=== PATIENT | female | born 1955 | race Caucasian/White ===

== ENCOUNTER → 2019-05-29 12:09 | Outpatient (BNVA) | payer BC, SELFPAY | PROVIDERS: Family Provider Family Medicine; PCP Nurse Practitioner; Referring Provider Nurse Practitioner; Visit Provider Specialist | DX: M25.521 Pain in right elbow (principal) | CPT/HCPCS: 73080 ==

== ENCOUNTER 2019-08-06 14:39 | Emergency (ER) | payer BC, SELFPAY ==
[2019-08-06 14:45] VITALS: BP 191/103; PULSE 76; RESP 18; TEMP 36.8; O2SAT 95; BMI 35.2
--- NOTE | 2019-08-06 15:10 | ECG_ITS ---
Measurements Intervals [place] Rate: 69 P: 32 MN: 168 QRS: -10 QRSD: 78 T: 63 QT: 398 QTc: [address] & T-WAVE ABNORMALITY No previous ECG available for comparison Electronically Signed On 08-06-2019 19:45:11 CDT by Cheri Morel M.D. [email or web address]
--- NOTE | 2019-08-06 15:10 | CT_ITS ---
WS: [id number] CT HEAD NONCONTRAST HISTORY: facial numbness TECHNIQUE: Contiguous axial imaging performed through the brain in 2.5 mm imaging. Bone and soft tiss ue windows. Sagittal and coronal reformats reviewed. All CT scans at [facility] use at ast one of these dose optimization techniques: automated exposure control; mA and/or kV adjustment pe r patient size (includes targeted exams where dose is matched to clinical indication); or iterative r econstruction. DLP: 720.08 mGy.cm COMPARISON: None available. No acute intracranial hemorrhage, midline shift or mass effect. No atrophy or prior infarcts or herniation. Tiny lacunar infarct LEFT basal ganglia. Ventricles: Normal size with no hydrocephalus. No inferior displacement of cerebellar tonsils. Paranasal sinuses: As visualized are clear. Mastoid air cells: Well pneumatized. Calvarium and scalp: Skull is intact with no soft tissue edema or swelling. Atherosclerotic plaque intracranial carotid arteries. CT/CT head wo con* [id number] IMPRESSION: Prior lacunar infarct LEFT basal ganglia. No acute intracranial findings.
[2019-08-06 15:16] LABS: Basophils % 0.6 %; Eosinophils # 0.2 10^3/uL (0.0-0.8); Eosinophils % 3.1 %; Hematocrit 48.2 % (37.0-47.0); Hemoglobin 16.3 g/dL (11.5-15.3); Lymphocytes # 1.6 10^3/uL (0.8-4.8); Lymphocytes % 31.4 %; Mean Corpuscular HGB Conc 33.8 g/dL (30.0-36.0); Mean Corpuscular Hemoglobin 32.2 pg (28.0-34.0); Mean Corpuscular Volume 95.3 fL (81-99); Mean Platelet Volume 11.1 fL (7.4-10.4); Monocytes # 0.4 10^3/uL (0.2-0.9); Monocytes % 8.1 %; Neutrophils # 2.9 10^3/uL (1.8-7.7); Neutrophils % 56.8 %; Nucleated Red Blood Cells % 0 %; Platelet Count 194 10^3/cmm (130-400); Red Blood Count 5.06 10^6/uL (4.1-5.3); Red Cell Distribution Width 12.2 % (12.1-15.1); White Blood Count 5.2 10^3/uL (4.0-10.0)
[2019-08-06] MEDS: LORazepam 1 mg Tablet PO (15:20)
[2019-08-06 15:30] VITALS: BP 157/93; PULSE 65; RESP 18; O2SAT 94
--- NOTE | 2019-08-06 15:33 | ED_ITS ---
Documented by User: Laly Landeros 08/06/19 17:07 HPI - Chest Pain General: Chief Complaint: Chest Pain Stated Complaint: CP Time Seen by Provider: 08/06/19 14:58 Source: patient Mode of arrival: ambulatory History of Present Illness: HPI narrative: Pt presents to ER with an array of symptoms and pt is poor historian. MD complaint: chest discomfort Review of Systems General: Reports: 10 or more systems reviewed and unremarkable except in HPI and below PFSH ED PFSH: Medical History Brain injury Hypertension Labyrinthitis, bilateral Surgical History Hx of cholecystectomy Hx of dilation and curettage Family History Other Cancer Lung disease Social History Smoking and tobacco status: never smoked Alcohol intake: never Adopted: No Caregiver/support person: No Lives independently: Yes Household members: family Housing: House Marital status: Number of children: 0 Highest education level completed: Bachelor's Degree service: No Current occupational status: employed Agree to transfusion: Yes (04/30/2019) Physical Exam Const: COMMON NORMALS: no apparent distress, oriented x3, no limitations and alert GENERAL APPEARANCE: cooperative and comfortable ORIENTATION/CO NSCIOUSNESS: Yes awake, Yes oriented to person, Yes oriented to place and Yes oriented to time HENMT: COMMON NORMALS: normocephalic, head/scalp atraumatic, external ears normal, EAC's normal, TM's normal bilaterally and external nose normal HEAD & SCALP: normal to inspection, normocephalic and atraumatic FACE & SINUS: normal facial exam, sinuses nontender and face symmetric NOSE: external nose normal, nares normal and no nasal discharge EXTERNAL EAR: Yes external ears normal EXTERNAL AUDITORY CANAL: EAC's normal TYMPANIC MEMBRANE: TM's normal bilaterally MOUTH: oral and palatal mucosa normal, lip normal and tongue normal THROAT: posterior oropharynx normal, tonsils normal and uvula midline Eye: COMMON NORMALS: PERRL, EOMs intact bilaterally and conjunctivae normal GENERAL EYE: normal appearance of both eyes and normal light reflex EYELID: eyelids normal CONJUNCTIVA: Yes conjunctivae normal PUPIL: Yes PERRL EOM: Yes EOM abnormal DIRECT OPHTHALMOSCOPY: Yes normal light reflex Neck/C-Spine: COMMON NORMALS: full ROM, no lymphadenopathy, supple, no meningeal signs, no JVD and thyroid normal GENERAL: Yes normal visual inspection THYROID: thyroid normal CERVICAL SPINE: Yes cervical ROM normal and Yes normal cervical lordosis Lymph: LYMPHATIC: no lymphadenopathy noted Chest: COMMONS NORMALS: inspection of chest normal and palpation of chest normal Resp: COMMON NORMALS: normal respiratory effort, no retractions and clear to auscultation bilaterally AUSCULTATION: clear to auscultation bilaterally Cardio: COMMON NORMALS: no JVD, regular rate, regular rhythm, S1 normal heart sound, S2 normal heart sound, no gallops, no clicks, no murmurs, no rub and peripheral pulses 2+ throughout RATE: regular rate RHYTHM: regular rhythm HEART SOUNDS: S1 normal and S2 normal PERIPHERAL PULSES: pulses 2+ throughout GI: COMMON NORMALS: normal to inspection, nondistended, normoactive bowel sounds, soft to palpation, non-tender and no masses PALPATION: Yes soft : COMMON NORMALS: Yes no CVA tenderness and Yes external appearance normal BLADDER/KIDNEY EXAM: Yes no CVA tenderness Back/Pelvis: COMMON NORMALS: no CVA tenderness, thoracic and lumbar spine normal to inspection, no thoracic nor lumbar tenderness and thoraco-lumbar ROM normal Extremity: COMMON NORMALS: normal to inspection, full ROM, normal capillary refill, no joint enlargement, no clubbing, cyanosis or edema, no calf tenderness and no pedal edema GENERAL: Yes normal exam except as noted Neuro: COMMON NORMALS: oriented x3, moves all extremities, no focal motor deficits, no sensory deficits noted and gait normal SENSORIUM/ORIENTATION: Yes alert, Yes oriented to person, Yes oriented to place and Yes oriented to time MENINGEAL SIGNS: Yes no meningeal signs Psych: COMMON NORMALS: mental status grossly normal, thought process normal, cooperative, affect normal, speech normal and activity/motor behavior normal SPEECH: Yes normal speech THOUGHT PROCESS: normal thought process Skin: COMMON NORMALS: no rashes or lesions noted, no wounds and skin turgor normal GENERAL SKIN EXAM: no rashes or lesions noted and turgor normal Course ED course: Pt has multiple complaints including blurry vision, difficulty with deep breaths, and states her face on the right side feels numb. She does have notably elevated BP but is in no acute distress during my assessment. Will proceed with orders. Reevaluation(s): Reevaluation #1: CT head shows no acute findings. Discussed with Dr. Reed. Will do serial troponin and CXR. Report given to Nain Sherman NP. Time: 17:07 Vital Signs: Vital signs: Vital Signs Temperature 98.2 F 08/06/19 14:45 Pulse Rate 72 08/06/19 16:55 Respiratory Rate 18 08/06/19 16:55 Blood Pressure 150/83 08/06/19 16:55 Pulse Oximetry 98 08/06/19 16:55 MDM - Chest Pain Lab Data: Labs: Lab Results 08/06/19 08/06/19 08/06/19 Range/Units 15:00 15:00 15:00 WBC 5.2 (4.0-10.0) 10^3/ uL RBC 5.06 (4.1-5.3) 10^6/u L Hgb 16.3 H (11.5-15.3) g/dL Hct 48.2 H (37.0-47.0) % MCV 95.3 (81-99) fL MCH 32.2 (28.0-34.0) pg MCHC 33.8 (30.0-36.0) g/dL RDW 12.2 (12.1-15.1) % Plt Count 194 (130-400) 10^3/c mm MPV 11.1 H (7.4-10.4) fL Neut % (Auto) 56.8 % Lymph % (Auto) 31.4 % [place] % (Auto) 8.1 % Eos % (Auto) 3.1 % Baso % (Auto) 0.6 % Neut # (Auto) 2.9 (1.8-7.7) 10^3/u L Lymph # (Auto) 1.6 (0.8-4.8) 10^3/u L [place] # (Auto) 0.4 (0.2-0.9) 10^3/u L Eos # (Auto) 0.2 (0.0-0.8) 10^3/u L Baso # (Auto) 0.0 (0.0-0.1) 10^3/u L Nucleated RBC % (a uto) 0 % Nucleated RBCs # 0.0 /100WBC Sodium 139 (136-145) mmol/L Potassium 4.2 (3.5-5.1) mmol/L Chloride 96 L (98-107) mmol/L Carbon Dioxide 29 (22-29) mmol/L Anion Gap 18.2 (5-19) BUN 10 (8-23) mg/dL Creatinine 0.6 (0.5-0.9) mg/dL GFR Calculation 101.0 (90-130) mL/min Glucose 154 H (65-115) mg/dL Calculated Osmolal ity 287 (285-295) mOsm/k g Calcium 10.7 H (8.5-10.5) mg/dL Total Bilirubin 0.7 (0.15-1.2) mg/dL AST 60 H (0-32) U/L ALT 61 H (0-33) U/L Alkaline Phosphata se 65 (35-105) IU/L Troponin T Gen 5 n g/L 6 (0-10) ng/mL Total Protein 8.6 (6.6-8.7) g/dL Albumin 4.6 (3.5-5.2) g/dL Globulin 4.0 (1.3-4.6) g/dL 08/06/19 Range/Units 17:07 WBC (4.0-10.0) 10^3/ uL RBC (4.1-5.3) 10^6/u L Hgb (11.5-15.3) g/dL Hct (37.0-47.0) % MCV (81-99) fL MCH (28.0-34.0) pg MCHC (30.0-36.0) g/dL RDW (12.1-15.1) % Plt Count (130-400) 10^3/c mm MPV (7.4-10.4) fL Neut % (Auto) % Lymph % (Auto) % [place] % (Auto) % Eos % (Auto) % Baso % (Auto) % Neut # (Auto) (1.8-7.7) 10^3/u L Lymph # (Auto) (0.8-4.8) 10^3/u L [place] # (Auto) (0.2-0.9) 10^3/u L Eos # (Auto) (0.0-0.8) 10^3/u L Baso # (Auto) (0.0-0.1) 10^3/u L Nucleated RBC % (a uto) % Nucleated RBCs # /100WBC Sodium (136-145) mmol/L Potassium (3.5-5.1) mmol/L Chloride (98-107) mmol/L Carbon Dioxide (22-29) mmol/L Anion Gap (5-19) BUN (8-23) mg/dL Creatinine (0.5-0.9) mg/dL GFR Calculation (90-130) mL/min Glucose (65-115) mg/dL Calculated Osmolal ity (285-295) mOsm/k g Calcium (8.5-10.5) mg/dL Total Bilirubin (0.15-1.2) mg/dL AST (0-32) U/L ALT (0-33) U/L Alkaline Phosphata se (35-105) IU/L Troponin T Gen 5 n g/L 6 (0-10) ng/mL Total Protein (6.6-8.7) g/dL Albumin (3.5-5.2) g/dL Globulin (1.3-4.6) g/dL Imaging Data^: CT Head: Radiologist's impression: [address] [place] [address] CT Scan Report Signed Patient: Fani Montes Unit #: [id number] : 1955 7 Age/Sex: 63 / F ADM Date: 08/06/19 Loc: ER Room/Bed: Attending Dr: Ordering Provider/Ordering MD: Laly Landeros NP Date of Service: 08/06/19 Procedure(s): CT head wo con* [id number] Accession Number(s): [id number] Report Number: [id number] WS: [id number] CT HEAD NONCONTRAST HISTORY: facial numbness TECHNIQUE: Contiguous axial imaging performed through the brain in 2.5 mm imaging. Bone and soft tissue windows. Sagittal and coronal reformats reviewed. All CT scans at [facility] use at least one of these dose optimization techniques: automated exposure control; mA and/or kV adjustment per patient size (includes targeted exams where dose is matched to clinical indication); or iterative reconstruction. DLP: 720.08 mGy.cm COMPARISON: None available. No acute intracranial hemorrhage, midline shift or mass effect. No atrophy or prior infarcts or herniation. Tiny lacunar infarct LEFT basal ganglia. Ventricles: Normal size with no hydrocephalus. No inferior displacement of cerebellar tonsils. Paranasal sinuses: As visualized are clear. Mastoid air cells: Well pneumatized. Calvarium and scalp: Skull is intact with no soft tissue edema or swelling. Atherosclerotic plaque intracranial carotid arteries. CT/CT head wo con* [id number] IMPRESSION: Prior lacunar infarct LEFT basal ganglia. No acute intracranial findings. Dictated By: Brittny Eldridge DO Signed By: Brittny Eldridge DO Signed Date/Time: 08/06/191622 DD/ 19 Discharge Plan Discharge Patient Disposition: Home, Self-Care Clinical Impression: Alberts's palsy, Chest pain due to GERD Condition: Stable Prescriptions: New prednisone 20 mg tablet 20 mg PO TID 7 Days Qty: 21 RF: 0 valacyclovir 1 gram tablet 1,000 mg PO TID 7 Days Qty: 21 RF: 0 No Action One-A-Day Women's 50 Plus 400-20 mcg tablet 1 tab PO DAILY RF: 0 coenzyme Q10 [Co Q-10] 100 mg capsule 300 mg PO DAILY RF: 0 mecobalamin (vitamin B12) 1,000 mcg tablet,disintegrating 1,000 mcg SUBLINGUAL DAILY RF: 0 Glucocil 2 tab PO PRN RF: 0 atenolol 50 mg tablet 50 mg PO BID Qty: 180 RF: 3 hydrochlorothiazide 25 mg tablet 25 mg PO DAILY Qty: 90 RF: 3 Vitamin C 1,000 mg Tablet 1,000 mg PO DAILY RF: 0 Aspir-81 81 mg Tablet,Delayed Release (Dr/Ec) 81 mg PO DAILY RF: 0 Cinnamon 500 mg Capsule 500 mg PO PRN RF: 0 turmeric 400 mg Capsule 400 mg PO DAILY RF: 0 Discharge Orders: Discharge Order (Routine); Ordered 08/06/19 Ordered By: Lc Sherman Referrals: Elysia Mariano FNP [Primary Care Provider] - Discharge Diet: Advance as tolerated Discharge Activity: Increase activity as tolerated Patient Instructions: Alberts Palsy (ED) Activity Restrictions/Additional Instructions: Drink plenty of water with medication. Healthy diet and activity. Avoid onions or foods that aggravate heartburn or reflux. Avoid taking prednisone 2 hours before bedtime. Follow-up with primary care in 1 week. Return to the ER for hi gh fever, worsening shortness of breath or other symptoms. Coding Level of Care Code ED Geology Professor for Chg Fwd Exam Comprehensive Documented by User: MARGIE Zuniga 08/06/19 18:05 HPI - Chest Pain General: Chief Complaint: Chest Pain Stated Complaint: CP Time Seen by Provider: 08/06/19 14:58 PFSH ED PFSH: Medical History Brain injury Hypertension Labyrinthitis, bilateral Surgical History Hx of cholecystectomy Hx of dilation and curettage Family History Other Cancer Lung disease Social History Smoking and tobacco status: never smoked Alcohol intake: never Adopted: No Caregiver/support person: No Lives independently: Yes Household members: family Housing: House Marital status: Number of children: 0 Highest education level completed: Bachelor's Degree service: No Current occupational status: employed Agree to transfusion: Yes (04/30/2019) Course Reevaluation(s): Reevaluation #1: 9022, received patient from BRANDY Rojas, awaiting CXR and troponin. Patient was reviewed with and recommened for further evaluation of 2 outstanding tests. Probable discharge after tests if negative results with follow-up with primary care. wjw Vital Signs: Vital signs: Vital Signs Temperature 98.2 F 08/06/19 14:45 Pulse Rate 72 08/06/19 16:55 Respiratory Rate 18 08/06/19 16:55 Blood Pressure 150/83 08/06/19 16:55 Pulse Oximetry 98 08/06/19 16:55 MDM - Chest Pain MDM Narrative: Medical decision making narrative: Patient comes in today for with general symptoms. On exam it was noted some facial drooping on the left side. Abdomen was soft with some epigastric tenderness. Bowel sounds are normal. Vital signs were normal except for some mild elevation in blood pressure. Laboratory values noted no elevation in troponin, no other significant abnormalities was noted. CT scan of the head noted a lacunar infarct of the basal ganglia that was old. Chest x-ray was normal. Reviewed exam with patient recommended treatment for Alberts's palsy. No sign of focal neural deficits or other central neuropathy. Differential diagnosis included but not limited to ACS, CVA, Alberts's palsy, reflux, pancreatitis, gastritis. Reviewed exam with patient recommended follow-up with primary care in 1 week. Recommend referral to neurology for further evaluation of facial drooping on the left side. Also recommended follow-up with surgery for endoscopy relating history of esophagitis and atypical chest pain. Patient reported understanding and agreed with plan. Lab Data: Labs: Lab Results 08/06/19 08/06/19 08/06/19 Range/Units 15:00 15:00 15:00 WBC 5.2 (4.0-10.0) 10^3/ uL RBC 5.06 (4.1-5.3) 10^6/u L Hgb 16.3 H (11.5-15.3) g/dL Hct 48.2 H (37.0-47.0) % MCV 95.3 (81-99) fL MCH 32.2 (28.0-34.0) pg MCHC 33.8 (30.0-36.0) g/dL RDW 12.2 (12.1-15.1) % Plt Count 194 (130-400) 10^3/c mm MPV 11.1 H (7.4-10.4) fL Neut % (Auto) 56.8 % Lymph % (Auto) 31.4 % [place] % (Auto) 8.1 % Eos % (Auto) 3.1 % Baso % (Auto) 0.6 % Neut # (Auto) 2.9 (1.8-7.7) 10^3/u L Lymph # (Auto) 1.6 (0.8-4.8) 10^3/u L [place] # (Auto) 0.4 (0.2-0.9) 10^3/u L Eos # (Auto) 0.2 (0.0-0.8) 10^3/u L Baso # (Auto) 0.0 (0.0-0.1) 10^3/u L Nucleated RBC % (a uto) 0 % Nucleated RBCs # 0.0 /100WBC Sodium 139 (136-145) mmol/L Potassium 4.2 (3.5-5.1) mmol/L Chloride 96 L (98-107) mmol/L Carbon Dioxide 29 (22-29) mmol/L Anion Gap 18.2 (5-19) BUN 10 (8-23) mg/dL Creatinine 0.6 (0.5-0.9) mg/dL GFR Calculation 101.0 (90-130) mL/min Glucose 154 H (65-115) mg/dL Calculated Osmolal ity 287 (285-295) mOsm/k g Calcium 10.7 H (8.5-10.5) mg/dL Total Bilirubin 0.7 (0.15-1.2) mg/dL AST 60 H (0-32) U/L ALT 61 H (0-33) U/L Alkaline Phosphata se 65 (35-105) IU/L Troponin T Gen 5 n g/L 6 (0-10) ng/mL Total Protein 8.6 (6.6-8.7) g/dL Albumin 4.6 (3.5-5.2) g/dL Globulin 4.0 (1.3-4.6) g/dL 08/06/19 Range/Units 17:07 WBC (4.0-10.0) 10^3/ uL RBC (4.1-5.3) 10^6/u L Hgb (11.5-15.3) g/dL Hct (37.0-47.0) % MCV (81-99) fL MCH (28.0-34.0) pg MCHC (30.0-36.0) g/dL RDW (12.1-15.1) % Plt Count (130-400) 10^3/c mm MPV (7.4-10.4) fL Neut % (Auto) % Lymph % (Auto) % [place] % (Auto) % Eos % (Auto) % Baso % (Auto) % Neut # (Auto) (1.8-7.7) 10^3/u L Lymph # (Auto) (0.8-4.8) 10^3/u L [place] # (Auto) (0.2-0.9) 10^3/u L Eos # (Auto) (0.0-0.8) 10^3/u L Baso # (Auto) (0.0-0.1) 10^3/u L Nucleated RBC % (a uto) % Nucleated RBCs # /100WBC Sodium (136-145) mmol/L Potassium (3.5-5.1) mmol/L Chloride (98-107) mmol/L Carbon Dioxide (22-29) mmol/L Anion Gap (5-19) BUN (8-23) mg/dL Creatinine (0.5-0.9) mg/dL GFR Calculation (90-130) mL/min Glucose (65-115) mg/dL Calculated Osmolal ity (285-295) mOsm/k g Calcium (8.5-10.5) mg/dL Total Bilirubin (0.15-1.2) mg/dL AST (0-32) U/L ALT (0-33) U/L Alkaline Phosphata se (35-105) IU/L Troponin T Gen 5 n g/L 6 (0-10) ng/mL Total Protein (6.6-8.7) g/dL Albumin (3.5-5.2) g/dL Globulin (1.3-4.6) g/dL Discharge Plan Discharge Patient Disposition: Home, Self-Care Clinical Impression: Alberts's palsy, Chest pain due to GERD Condition: Stable Prescriptions: New prednisone 20 mg tablet 20 mg PO TID 7 Days Qty: 21 RF: 0 valacyclovir 1 gram tablet 1,000 mg PO TID 7 Days Qty: 21 RF: 0 No Action One-A-Day Women's 50 Plus 400-20 mcg tablet 1 tab PO DAILY RF: 0 coenzyme Q10 [Co Q-10] 100 mg capsule 300 mg PO DAILY RF: 0 mecobalamin (vitamin B12) 1,000 mcg tablet,disintegrating 1,000 mcg SUBLINGUAL DAILY RF: 0 Glucocil 2 tab PO PRN RF: 0 atenolol 50 mg tablet 50 mg PO BID Qty: 180 RF: 3 hydrochlorothiazide 25 mg tablet 25 mg PO DAILY Qty: 90 RF: 3 Vitamin C 1,000 mg Tablet 1,000 mg PO DAILY RF: 0 Aspir-81 81 mg Tablet,Delayed Release (Dr/Ec) 81 mg PO DAILY RF: 0 Cinnamon 500 mg Capsule 500 mg PO PRN RF: 0 turmeric 400 mg Capsule 400 mg PO DAILY RF: 0 Discharge Orders: Discharge Order (Routine); Ordered 08/06/19 Ordered By: Lc Sherman Referrals: Elysia Mariano FNP [Primary Care Provider] - Discharge Diet: Advance as tolerated Discharge Activity: Increase activity as tolerated Patient Instructions: Alberts Palsy (ED) Activity Restrictions/Additional Instructions: Drink plenty of water with medication. Healthy diet and activity. Avoid onions or foods that aggravate heartburn or reflux. Avoid taking prednisone 2 hours before bedtime. Follow-up with primary care in 1 week. Return to the ER for high fever, worsening shortness of breath or other symptoms. Coding Level of Care Code ED Geology Professor for Andres Fwd Exam Comprehensive
[2019-08-06 16:11] LABS: Alanine Aminotransferase 61 U/L (0-33); Albumin Level 4.6 g/dL (3.5-5.2); Alkaline Phosphatase 65 IU/L (35-105); Anion Gap 18.2 (5-19); Blood Urea Nitrogen 10 mg/dL (8-23); Calcium 10.7 mg/dL (8.5-10.5); Carbon Dioxide 29 mmol/L (22-29); Chloride 96 mmol/L (98-107); Glucose 154 mg/dL (65-115); Osmolality Calculated 287 mOsm/kg (285-295); Potassium 4.2 mmol/L (3.5-5.1); Sodium 139 mmol/L (136-145); Total Bilirubin 0.7 mg/dL (0.15-1.2); Total Protein 8.6 g/dL (6.6-8.7)
[2019-08-06 16:12] LABS: Aspartate Amino Transferase 60 U/L (0-32)
[2019-08-06 16:31] VITALS: BP 209/132; PULSE 65; RESP 18; O2SAT 96
[2019-08-06 16:55] VITALS: BP 150/83; PULSE 72; RESP 18; O2SAT 98
--- NOTE | 2019-08-06 17:06 | XR_ITS ---
WS: [id number] PORTABLE CHEST HISTORY: chest discomfort on inspiration COMPARISON: None available. Lungs are clear and well expanded. No pleural effusion or pneumothorax. Cardiac size: Normal. Mediastinum/Aorta: Normal mediastinum. No osseous abnormality seen. XR/XR chest 1V portable [id number] IMPRESSION: Unremarkable portable chest.
[2019-08-06 17:32] LABS: Troponin T (5th) Once 6 ng/mL (0-10)
[2019-08-06 17:34] LABS: Troponin T (5th) Once 6 ng/mL (0-10)
[2019-08-06] MEDS: predniSONE 20 mg Tablet PO (19:06)
[2019-08-06] MEDS: valACYclovir 1,000 mg Tablet 1000 MG PO (19:06)
[2019-08-06 19:11] VITALS: BP 130/85; PULSE 66; RESP 18; O2SAT 95
--- NOTE | 2019-08-07 10:47 | DCPLANNER ---
youth manager had message to schedule a follow up appointment for patient with neurology. youth manager called the office of Dr. Leonardo, spoke with Veronica, gave clinic patients information. A follow up appointment was scheduled for Wednesday, August 14, 2019 at 8:00 with Carter Triana. youth manager called and spoke with patients , gave him the appointment information.
--- NOTE | 2019-08-21 08:08 | DCPLANNER ---
Patient did attend appointment scheduled for 08.14.[address] Leonardo.
== END 2019-08-06 19:12 | disposition home or self-care (01) ==
PROVIDERS: Nurse Practitioner Family; Emergency Provider Nurse Practitioner Family; PCP Nurse Practitioner
DX: G51.0 Bell's palsy (principal); K21.9 Gastro-esophageal reflux disease without esophagitis; Z79.82 Long term (current) use of aspirin; I10 Essential (primary) hypertension
CPT/HCPCS: 12345; 70450; 71045; 80053; 84484; 85025; 93005; 99283; J7512

== ENCOUNTER → 2019-08-14 08:01 | Outpatient (BNVA) | payer BC, SELFPAY | PROVIDERS: PCP Nurse Practitioner; Visit Provider Nurse Practitioner | DX: G51.0 Bell's palsy (principal) | CPT/HCPCS: 99204; 99999 ==

== ENCOUNTER 2019-09-13 13:39 | Outpatient (CLI) | payer BC, SELFPAY ==
--- NOTE | 2019-09-13 14:15 | USCV_ITS ---
Fani Montes Age: 64 Gender: F : 1955 Exam Date: 09/13/2019 13:54 Ordering Phys: Carter Triana MSN AGACNP-BC Technologist: Hasmukh Real [place] [facility] [place]: DZZY Risk Factors: None Previous Vascular Surgery: None Right Brachial BP: / Left Brachial BP: / Right Left Velocity (cm/s) Spectral Plaque Velocity (cm/s) Spectral Plaque Syst/Diast Broadening Syst/Diast Broadening 61.70/ 13.20 Prox CCA 84.00 / 19.10 58.70/ 13.20 Mid CCA 52.80 / 8.80 76.90/ 16.20 Hetro Distal CCA 56.40 / 14.70 Hetro 40.60/ 11.20 Hetro Prox ICA 46.30 / 11.30 Hetro 49.00/ 11.40 Mid ICA 61.20 / 18.40 39.90/ 14.20 Distal ICA 58.20 / 21.40 95.20 ECA 52.30 0.64 ICA/CCA 0.73 Antegrade Vertebral Antegrade 26.50/ 7.40 cm/s 36.80/ 7.70 cm/s Tri Subclavian Tri 60.40 64.10 FINDINGS Mild to moderate plaque to the right bifurcation and internal carotid artery Minimal plaques of the left bifurcation internal carotid artery Antegrade flow in the vertebral arteries bilaterally Normal Doppler flow velocities in the external carotid and subclavian arteries bilaterally CONCLUSIONS Mild to moderate plaque at the right bifurcation and internal carotid artery Minimal plaques at the left bifurcation internal carotid artery. No significant stenosis, based on the above findings. Dr Sudhir Randall MD FAC (Electronically Signed) Final Date: 16 September 2019 07:58 S
== END 2019-09-13 13:40 | disposition home or self-care (01) ==
LOC: RAD 13:43
PROVIDERS: PCP Nurse Practitioner; Visit Provider Nurse Practitioner
DX: R42 Dizziness and giddiness (principal); I65.21 Occlusion and stenosis of right carotid artery
CPT/HCPCS: 93880

== ENCOUNTER → 2020-08-25 12:34 | Outpatient (BNVA) | payer MEDICARE, SELFPAY | PROVIDERS: PCP Nurse Practitioner Family; Visit Provider Nurse Practitioner Family | DX: I10 Essential (primary) hypertension (principal); G47.00 Insomnia, unspecified; M54.2 Cervicalgia; M79.601 Pain in right arm; M25.511 Pain in right shoulder; R07.9 Chest pain, unspecified; G89.29 Other chronic pain | CPT/HCPCS: 80053; 80061; 85025 ==

== ENCOUNTER 2020-08-28 13:12 | Outpatient (CLI) | payer MEDICARE, SELFPAY ==
--- NOTE | 2020-08-28 13:30 | XR_ITS ---
WS: [id number] RIGHT SHOULDER: 3 VIEW(S) TECHNIQUE: Internal and external rotation with Y view. HISTORY: M25.511 - Pain in right shoulder COMPARISON: None available. No fracture or dislocation or soft tissue abnormality. Mild AC joint arthritis. XR/XR shoulder RT min 2V* [id number] IMPRESSION: Mild RIGHT AC joint arthritis.
--- NOTE | 2020-08-28 13:30 | XR_ITS ---
WS: [id number] CERVICAL SPINE 3 VIEWS HISTORY: M54.2 - Cervicalgia COMPARISON: None available. Straight neck and reversal normal cervical lordosis centered at C6. Moderate disc space narrowing and desiccation with osteophytes at C5-6 and C6-7. No fracture. There i s mild RIGHT curvature thoracic spine. Soft tissues are normal. Lateral masses are aligned odontoid is intact. XR/XR cervical spine 3V* [id number] IMPRESSION: Moderate spondylitic changes in the cervical spine, most significant at C5-6 an d C6-7. No fracture.
--- NOTE | 2020-08-28 13:30 | XR_ITS ---
WS: [id number] RIGHT HUMERUS: 2 VIEW(S) TECHNIQUE: AP and lateral. HISTORY: M79.601 - Pain in right arm COMPARISON: None available. Mild AC joint arthritis. No joint or soft tissue abnormality. No foreign bodies and visualized upper thorax is unremarkable. XR/[place] [id number] IMPRESSION: Mild RIGHT AC joint arthritis.
== END 2020-08-28 13:13 | disposition home or self-care (01) ==
PROVIDERS: PCP Nurse Practitioner Family; Visit Provider Nurse Practitioner Family
DX: M54.2 Cervicalgia (principal); M79.601 Pain in right arm; M25.511 Pain in right shoulder; M13.811 Other specified arthritis, right shoulder
CPT/HCPCS: 72040; 73030; 73060

== ENCOUNTER 2020-10-05 12:32 | Outpatient (RCR) | payer MEDICARE, SELFPAY | END 2020-10-24 23:59 | disposition home or self-care (01) | LOC: SPT 12:32 | PROVIDERS: PCP Nurse Practitioner Family; Referring Provider Nurse Practitioner Family; Visit Provider Nurse Practitioner Family | DX: M79.601 Pain in right arm (principal); M54.2 Cervicalgia; M25.511 Pain in right shoulder; G89.29 Other chronic pain; M25.521 Pain in right elbow | CPT/HCPCS: 97110; 97140; 97162; 97530 ==

== ENCOUNTER → 2021-06-07 11:37 | Outpatient (BNVA) | payer MEDICARE, SELFPAY | PROVIDERS: PCP Nurse Practitioner Family; Visit Provider Nurse Practitioner Family | DX: I10 Essential (primary) hypertension (principal); E55.9 Vitamin D deficiency, unspecified | CPT/HCPCS: 80053; 80061; 82306; 82607; 84443; 85025 ==

== ENCOUNTER 2021-07-13 16:46 | Outpatient (CLI) | payer MEDICARE, SELFPAY ==
[2021-07-13 17:59] LABS: Thyroid Stimulating Hormone 7.24 uIU/mL (0.27-4.20)
[2021-07-13 20:06] LABS: Free T4 Free Thyroxine 1.14 ng/dL (0.82-1.77)
[2021-07-13 20:11] LABS: Estmated Average Glucose 128; Hemoglobin A1C 6.1 % (4.0-6.0)
== END 2021-07-13 16:47 | disposition home or self-care (01) ==
LOC: LAB 16:52
PROVIDERS: PCP Nurse Practitioner Family; Visit Provider Nurse Practitioner Family
DX: R73.9 Hyperglycemia, unspecified (principal); R79.89 Other specified abnormal findings of blood chemistry
CPT/HCPCS: 83036; 84439; 84443

== ENCOUNTER → 2021-09-21 12:07 | Outpatient (BNVA) | payer OTHER, SELFPAY | PROVIDERS: PCP Nurse Practitioner Family; Visit Provider Nurse Practitioner Family | DX: I10 Essential (primary) hypertension (principal); R00.2 Palpitations; R53.83 Other fatigue; E55.9 Vitamin D deficiency, unspecified; R73.9 Hyperglycemia, unspecified; E03.9 Hypothyroidism, unspecified; L23.7 Allergic contact dermatitis due to plants, except food; I83.90 Asymptomatic varicose veins of unspecified lower extremity | CPT/HCPCS: 80053; 80061; 82306; 84439; 84443; 84481; 85025 ==

== ENCOUNTER → 2022-10-20 13:32 | Outpatient (BNVA) | payer MEDICARE, SELFPAY | PROVIDERS: PCP Nurse Practitioner Family; Visit Provider Family Medicine Adult Medicine | DX: I10 Essential (primary) hypertension (principal); R73.03 Prediabetes; E03.9 Hypothyroidism, unspecified | CPT/HCPCS: 80053; 83036; 84443 ==

== ENCOUNTER → 2023-05-30 12:53 | Outpatient (BNVA) | payer MEDICARE, SELFPAY | PROVIDERS: PCP Nurse Practitioner Family; Visit Provider Nurse Practitioner Family | DX: L57.8 Other skin changes due to chronic exposure to nonionizing radiation (principal); L82.1 Other seborrheic keratosis; D22.5 Melanocytic nevi of trunk; L81.4 Other melanin hyperpigmentation; Z85.828 Personal history of other malignant neoplasm of skin | CPT/HCPCS: 99213 ==

== ENCOUNTER → 2024-04-09 11:56 | Outpatient (BNVA) | payer MEDICARE, SELFPAY | PROVIDERS: PCP Family Medicine; Visit Provider Family Medicine | DX: I10 Essential (primary) hypertension (principal); R73.03 Prediabetes; R79.89 Other specified abnormal findings of blood chemistry; N95.0 Postmenopausal bleeding | CPT/HCPCS: 80053; 83036; 84439; 84443; 84481; 85025 ==

== ENCOUNTER 2024-04-25 13:52 | Outpatient (CLI) | payer MEDICARE, SELFPAY ==
--- NOTE | 2024-04-25 13:45 | US_ITS ---
WS: [id number] US transvaginal [id number] HISTORY: postmenopausal vaginal bleeding COMPARISON: None available. Uterus: 6.9 cm x 4.1 cm x 3.4 cm. Retroverted uterus. Normal size uterus. There is a hypoechoic mass inseparable from the LEFT uterus m easuring 2.0 x 2.8 x 2.2 cm which may be a fibroid. Mild peripheral increased vascularity. Endometrium: 1.9 cm. Abnormal endometrium. Endometrium is enlarged for a postmenopausal patient. Ther e are a few cystic areas scattered throughout the endometrium and the endometrium is hyperechoic. Dif fuse enlargement of the endometrium with mild increased vascularity. Neither ovary is identified. No free fluid in the cul-de-sac. US/US transvaginal [id number] IMPRESSION: 1. Abnormal endometrium. Enlarged hyperechoic endometrium measuring up to 1.9 cm with scattered cystic areas. Differential includes hyperplasia and neoplasm. Recommend BASKETBALL SCOUT evaluation and endometrial biopsy. 2. Exophytic mass from the LEFT uterus. Mass is inseparable from the uterus an d this is probably a fibroid. Fibroid measures 2.0 x 2.8 x 2.2 cm. Due to the p osition of this mass abnormal ovary should be considered. As it is inseparable from the uterus this is likely a fibroid. 3. Neither ovary is identified.
== END 2024-04-25 13:53 | disposition home or self-care (01) ==
PROVIDERS: PCP Family Medicine; Visit Provider Family Medicine
DX: N95.0 Postmenopausal bleeding (principal); N85.00 Endometrial hyperplasia, unspecified; R22.9 Localized swelling, mass and lump, unspecified; N85.8 Other specified noninflammatory disorders of uterus
CPT/HCPCS: 76830

== ENCOUNTER → 2024-05-29 11:15 | Outpatient (BNVA) | payer MEDICARE, SELFPAY | PROVIDERS: PCP Family Medicine; Visit Provider Nurse Practitioner Family | DX: L81.4 Other melanin hyperpigmentation (principal); L57.8 Other skin changes due to chronic exposure to nonionizing radiation; X32.XXXA Exposure to sunlight, initial encounter; L57.3 Poikiloderma of Civatte; L82.1 Other seborrheic keratosis; D22.5 Melanocytic nevi of trunk; Z08 Encounter for follow-up examination after completed treatment for malignant neoplasm; Z85.828 Personal history of other malignant neoplasm of skin | CPT/HCPCS: 99213 ==

== ENCOUNTER → 2024-10-28 15:54 | Outpatient (BNVA) | payer MEDICARE, SELFPAY | PROVIDERS: PCP Family Medicine; Visit Provider Family Medicine | DX: Z13.6 Encounter for screening for cardiovascular disorders (principal); Z11.59 Encounter for screening for other viral diseases | CPT/HCPCS: 80061; 86803 ==